=== PATIENT | female | born 1970 ===

== ENCOUNTER 2023-06-15 07:28 | Outpatient (CLI) | payer OTHER, SELFPAY ==
--- NOTE | 2023-06-15 07:48 | MM_ITS ---
WS: [id number] VIEWS: MLO and CC views both breasts. 3D digital tomosynthesis is also included in this exam. Comparison made with prior exam of 02/25/2016, 03/08/2016, 05/20/2021.. Findings: There was no sign of mass, architectural distortion or suspicious calcification in either breast. Sta ble appearing nodular densities in both breasts.There are scattered areas of fibroglandular density MM/[place] [id number] Impression: BI-RADS: 2-Benign finding. FOLLOW-UP: 1 Year Follow-up This mammogram was also analyzed by the Computer Aided Detection System R2 Imag e Clinical Pharmacist.
== END 2023-06-15 07:29 | disposition home or self-care (01) ==
PROVIDERS: PCP Family Medicine; Visit Provider Family Medicine
DX: Z12.31 Encounter for screening mammogram for malignant neoplasm of breast (principal)
CPT/HCPCS: 77063; 77067

== ENCOUNTER 2025-07-16 09:40 | Emergency (ER) | payer OTHER, SELFPAY ==
--- OUTSIDE RECORDS SUMMARY | 2025-07-08 18:45 | XMS_ITS | Encounter Summary ---
Author Organization [facility] Address [address] [place] [address] Care Team Providers Care Police Or Patrol Park Officer Name Role Phone Jennifer Yousif DO Primary Care Provider Reason for Visit * Reason Comments Insect bite/Sting Encounter Details Date Type Department Care Team (Late st Contact Info) Description 07/08/2025 6:45 PM CDT Video Visit [facility] [address] [place] [phone] Charlene Mar FNP [address] [facility] [address] [place] [address] Infected insect bite or sting (Primary Dx) Social History Tobacco Use Types Packs/Day Years Used Date Smoking Tobacco: Former Cigarettes Smokeless Tobacco: Never Alcohol Use Standard Drinks/Week Comments Yes 0 (1 standard drink = 0.6 oz pur e alcohol) Comments Unknown Sex and Gender Information Value Date Recorded Sex Assigned at Not on file Legal Sex Female 4:12 AM FAMILY PRESERVATION WORKER Gender Identity Not on file Sexual Orientation Not on file documented as of this encounter Patient Instructions * Attachments The following attachments cannot be sent through Care Everywhere. * Insect Stings and Bites ([place]) documented in this encounter Progress Notes * Charlene Mar FNP - 07/08/2025 7:06 PM CDT Images from the original note were not included. HISTORY OF PRESENT ILLNESS Marcie Cool, a 55 y.o. female presents with a Chief Complaint of Insect bite/Sting Subjective Insect bite/Sting Couple of hours ago bit felt like she was bitten by something to her right thigh. It perry and stings. Denies any change in voice, throat swelling, tongue swelling. REVIEW OF SYSTEMS Review of Systems Constitutional: Negative. HENT: Negative. Respiratory: Negative. Cardiovascular: Negative. Gastrointestinal: Negative. Skin: Positive for wound. All other systems reviewed and are negative. Objective PHYSICAL EXAM There were no vitals taken for this visit. Physical Exam Constitutional: Appearance: Normal appearance. HENT: Head: Normocephalic. Pulmonary: Effort: Pulmonary effort is normal. Skin: Comments: See picture Neurological: Mental Status: She is alert and oriented to person, place, and time. Psychiatric: Attention and Perception: Attention normal. Mood and Affect: Mood normal. Behavior: Behavior normal. Behavior is cooperative. Procedures Assessment ASSESSMENT and PLAN: ICD-10-CM ICD-9-CM 1. Infected insect bite or sting W57.XXXA 919.5 E906.4 Discussed with patient that she is having a localized reaction to a bug bite or sting. Advised to monitor and treat symptomatically. Try some Benadryl and ibuprofen and apply ice. She can reach out to [facility] primary care 365 at any time for questions or concerns. Patient verbalized understanding. Patient's identity confirmed yes Patient gave verbal consent to have these services billed to their insurance and expressed understanding that co-insurance and deductible may apply: yes Patient was located at home. {This encounter was completed via two-way synchronous audio and video communication. documented in this encounter Miscellaneous Notes * Patient Instructions - Charlene Mar FNP - 07/08/2025 7:14 PM CDT *Should you have any further questions about your video visit from today, contact the Care Now provider via [employer] at your convenience* documented in this encounter Plan of Treatment Upcoming Encounters Date Type Department Care Team (Late st Contact Info) Description 01/10/2026 12:00 PM FAMILY PRESERVATION WORKER Office Visit [facility] [address] [place] [address] Rolo Pathak FNP [address] [place] [phone] documented as of this encounter Visit Diagnoses Diagnosis Infected insect bite or sting- Primary Other, multiple, and unspecified sites, insect bite, nonvenomous, infected documented in this encounter Care Teams Police Or Patrol Park Officer Relationship Specialty Start Date End Date Jennifer Yousif DO [address] [place] [address] PCP - General Family Practice 03/02/16 documented as of this encounter
--- OUTSIDE RECORDS SUMMARY | 2025-07-10 09:40 | XMS_ITS | Encounter Summary ---
Author Organization [facility] Address [address] [place] [address] Care Team Providers Care Washing And Screening Plant Supervisor Name Role Phone Jennifer Yousif Primary Care Provider [phone] Reason for Visit * Reason Comments Insect bite/Sting Pt states insect bit e on right thigh Hypertension Hypertension Encounter Details Date Type Department Care Team (Late st Contact Info) Description 07/10/2025 9:40 AM CDT Office Visit [facility] [address] [place] [address] Rolo Pathak [facility] [address] [place] [address] Spider bite wound, accidental or unintentional, initial encounter (Primary Dx); Elevated blood pressure reading without diagnosis of hypertension Social History Tobacco Use Types Packs/Day Years Used Date Smoking Tobacco: Former Cigarettes Smokeless Tobacco: Never Alcohol Use Standard Drinks/Week Comments Yes 0 (1 standard drink = 0.6 oz pur e alcohol) Comments Unknown Sex and Gender Information Value Date Recorded Sex Assigned at Not on file Legal Sex Female 4:12 AM LOCOMOTIVE INSPECTOR Gender Identity Not on file Sexual Orientation Not on file documented as of this encounter Last Filed Vital Signs Vital Sign Reading Time Taken Comments Blood Pressure 156/98 07/10/2025 9:43 AM CDT Pulse 100 07/10/2025 9:42 AM CDT Temperature 36.8 C (98.2 F) 07/10/2025 9:42 AM CDT Respiratory Rate 18 07/10/2025 9:42 AM CDT Oxygen Saturation 97% 07/10/2025 9:42 AM CDT Inhaled Oxygen Concentration - - Weight 93.4 kg (205 lb 12.8 oz) 07/10/2025 9:42 AM CDT Height 172.7 cm (5' 8 ) 07/10/2025 9:42 AM CDT Body Mass Index 31.29 07/10/2025 9:42 AM CDT documented in this encounter Progress Notes * Rolo Pathak, WORKERS COMPENSATION CLAIMS ADJUSTER - 07/10/2025 9:42 AM CDT Images from the original note were not included. Chief Complaint Patient presents with Insect bite/Sting Pt states insect bite on right thigh Hypertension Hypertension Patient Active Problem List Diagnosis Code Tobacco use Z72.0 History of fracture of ankle Z87.81 H/O fracture of tibia Z87.81 Seasonal allergic rhinitis due to pollen J30.1 History of Present Illness The patient is a 55-year-old female who presents right thigh skin rash and pain. She reports severethigh pain from possible insect bite that occurred at her workplace on July 08, 2025. The area turned black and blue after scratching. She was advised to take Benadryl, ibuprofen, and apply ice during a [employer] Zoom call. However, her condition worsened, with the development of fever and increased leg pain. The pain is described as throbbing, burning, and stabbing. There is a red ring around the bite that has become more sore and raised. She has three distinct bite alba, with the third being less pronounced. She experienced a fever of 100.5??F last night, which subsided around 2-3 AM. Despite working yesterday, the intense pain caused her to cry. She was wearing pants at the time of the bite. She has no known allergies. Ice packs provide temporary relief, but rubbing exacerbates the pain. Her sleep has been affected due to the pain, resulting in a lack of sleep. 10 point review of systems is otherwise negative except as mentioned above. Depression Screen Positive: PHQ-2 score >= 3 or PHQ-9 score >= 9 PHQ-2 Total: 0 (07/10/2025 9:42 AM) DEPRESSION PLAN OF CARE Her depression screen was negative. (PHQ2 <3, PHQ9 <10, [place] <11) No past medical history on file. Current Outpatient Medications Medication Instructions cetirizine (ZYRTEC) 10 mg, Oral, DAILY doxycycline hyclate (VIBRAMYCIN) 100 mg, Oral, TWO TIMES DAILY traMADoL (ULTRAM) 50 mg tablet TAKE ONE TABLET BY MOUTH EVERY 8 HOURS NEEDED FOR PAIN. triamcinolone acetonide (NASACORT AQ) 55 mcg nasal spray 1 [place], DAILY Past Surgical History: Procedure Laterality Date HX BREAST SURGERY - OTHER infection of right breast that was surgically removed. HX FRACTURE TX Right 2006 plate and screws right ankle/leg. HX HYSTERECTOMY Bilateral 09/2004 COMPLETE HX TONSILLECTOMY Past social, family, and medical history reviewed. BP (!) 156/98 Pulse 100 Temp 98.2 ??F (36.8 ??C) Resp 18 Ht 5' 8 (1.727 m) Wt 93.4 kg (205 lb 12.8 oz) SpO2 97% BMI 31.29 kg/m?? Physical Exam Skin: The examination reveals an erythematous, raised area on the thigh with a red ring. There is no substantial abscess. Physical Exam Constitutional: General: She is not in acute distress. Appearance: Normal appearance. She is not ill-appearing. HENT: Right Ear: External ear normal. Left Ear: External ear normal. Nose: No congestion or rhinorrhea. Eyes: Conjunctiva/sclera: Conjunctivae normal. Pupils: Pupils are equal, round, and reactive to light. Pulmonary: Effort: Pulmonary effort is normal. No respiratory distress. Musculoskeletal: General: Normal range of motion. Skin: General: Skin is warm and dry. Findings: Rash (Left lateral mid thigh there is 5 cm x 9 cm irregular bordered skin rash with central purple puncta. Skin is very tender to touch with mild warmth. No significant abscess under the skin felt) present. Neurological: Mental Status: She is alert and oriented to person, place, and time. Psychiatric: Mood and Affect: Mood normal. Behavior: Behavior normal. ICD-10-CM ICD-9-CM 1. Spider bite wound, accidental or unintentional, initial encounter T63.301A 989.5 cefTRIAXone (ROCEPHIN) vial 1,000 mg E905.1 doxycycline hyclate (VIBRAMYCIN) 100 mg tablet 2. Elevated blood pressure reading without diagnosis of hypertension R03.0 796.2 Assessment & Plan Insect bite - Possible brown recluse spider bite, leading to staph infection and cellulitis - Immediate antibiotics needed - Antibiotic therapy, monitoring, and ER visit signs discussed (fever >102 F, rapid symptom progression) - IM 1 gram Rocephin injection today - Doxycycline 100 mg BID for 10 days, instructed to take with food and start probiotics - Tylenol, ibuprofen, and ice recommended - Will request short course to collaborative physician for hydrocodone for breakthrough pain Elevated blood pressure - Likely due to pain, discomfort, fever, and lack of sleep - Reevaluation next week to determine if related to current symptoms or underlying condition Follow-up - Next week VARUN GutierrezC The author of this note, patient (or authorized office services representative), and all other persons present consent to the audio recording of this visit for charting documentation purposes. This note was automatically generated, edited by a Quality Dairy Farm Worker, and finalized by KAMALA Manning. documented in this encounter Plan of Treatment Upcoming Encounters Date Type Department Care Team (Late st Contact Info) Description 01/10/2026 12:00 PM LOCOMOTIVE INSPECTOR Office Visit [facility] [address] [place] [phone] Rolo Pathak FNP [address] [place] [address] documented as of this encounter Visit Diagnoses Diagnosis Spider bite wound, accidental or unintentional, initial encounter- Primary Elevated blood pressure reading without diagnosis of hypertension documented in this encounter Administered Medications Inactive Administered Medications - up to 3 most recent administrations Medication Order MAR Action Action Date Dose Rate Site cefTRIAXone (ROCEPHIN) vial 1,000 mg 1,000 mg, IM, ONE TIME ONLY, 1 dose, On Tue07/10/25 at 1000, Routine, Antibiotic Indication: Wound / Cellulitis / AbscessIndications:Spider bite wound, accidental or unintentional, initial encounter Given 07/10/2025 10:04 AM CDT 1,000 mg Buttock, Right documented in this encounter Care Teams Washing And Screening Plant Supervisor Relationship Specialty Start Date End Date Jennifer Yousif DO [address] [place] [address] PCP - General Family Practice 03/02/16 documented as of this encounter
--- OUTSIDE RECORDS SUMMARY | 2025-07-15 08:00 | XMS_ITS | Encounter Summary ---
Author Organization [facility] Address [address] [place] [address] Care Team Providers Care Grease Buffer Name Role Phone Jennifer Yousif Primary Care Provider [phone] Reason for Referral * Eval and Treat (Urgent) - Pending Review Specialty Diagnoses / Procedures Referred By Rafael tian Referred To Contact Diagnoses Cutaneous abscess of right lower extremity Spider bite wound, accidental or unintentional, initial encounter Procedures AL OFFICE/OUTPATIENT ESTABLISHED MOD MDM 30 MIN AL OFFICE/OUTPATIENT NEW MODERATE MDM 45 MINUTES Rolo Pathak FNP [address] [place] [address] Phone: tel: fax: [facility] [place] [address] [place] [address] Phone: tel: fax: Referral ID Status Reason Start Date Expiration Date V isits Requested Visits Authorized [id number] Pending Review 07/15/2025 07/15/2026 1 1 Reason for Visit * Reason Comments Chronic Conditions Coordination Follow Up Spider bite Encounter Details Date Type Department Care Team (Late st Contact Info) Description 07/15/2025 8:00 AM CDT Office Visit [facility] [address] [place] [address] Rolo Pathak FNP [address] [place] [address] Cutaneous abscess of right lower extremity (Primary Dx); Spider bite wound, accidental or unintentional, initial encounter; Benign hypertension Social History Tobacco Use Types Packs/Day Years Used Date Smoking Tobacco: Former Cigarettes Passive Smoke Exposure: Past Smokeless Tobacco: Never Tobacco Cessation:Counseling Given: No Alcohol Use Standard Drinks/Week Comments Yes 0 (1 standard drink = 0.6 oz pur e alcohol) Comments No Sex and Gender Information Value Date Recorded Sex Assigned at Not on file Legal Sex Female 4:12 AM HIGH SCHOOL SPORTS COACH Gender Identity Not on file Sexual Orientation Not on file documented as of this encounter Last Filed Vital Signs Vital Sign Reading Time Taken Comments Blood Pressure 164/98 07/15/2025 8:08 AM CDT Pulse 110 07/15/2025 8:07 AM CDT Temperature 36.4 C (97.5 F) 07/15/2025 8:07 AM CDT Respiratory Rate 18 07/15/2025 8:07 AM CDT Oxygen Saturation 100% 07/15/2025 8:07 AM CDT Inhaled Oxygen Concentration - - Weight 92.5 kg (204 lb) 07/15/2025 8:07 AM CDT Height 172.7 cm (5' 8 ) 07/15/2025 8:07 AM CDT Body Mass Index 31.02 07/15/2025 8:07 AM CDT documented in this encounter Progress Notes * Rolo Ptahak, KAMALA - 07/15/2025 8:09 AM CDT Images from the original note were not included. Chief Complaint Patient presents with Chronic Conditions Coordination Follow Up Spider bite Patient Active Problem List Diagnosis Code History of fracture of ankle Z87.81 H/O fracture of tibia Z87.81 Seasonal allergic rhinitis due to pollen J30.1 Benign hypertension I10 History of Present Illness The patient is a 55-year-old female presenting for follow-up on a spider bite on right leg and elevated blood pressure. The spider bite's redness has decreased, but the area remains hard with blisters. She experiences shooting and throbbing thigh pain, which has lessened. Pain disrupts her sleep, allowing rest for 30 minutes to 1.5 hours, occasionally up to 3 hours. She has been unable to work due to pain and has been resting at home. No fever or chills, but a slight temperature increase to 99.5??F. Continues antibiotics twice daily and applies a bandage at work. She reports a knee injury with a popping sound while standing. She has been icing, wrapping, and elevating the knee. Considering a cortisone injection for her ankle. History of ankle fractures treated with plates and screws. She has not visited a doctor in about 5 years. Vital signs tend to elevate during visits. Acknowledges being overweight and is open to dietary changes. Maintains a healthy diet, avoiding processed foods. Takes turmeric, calcium, magnesium, zinc with vitamin D, and vitamin B supplements daily. 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 Hobbies: She engages in ron work. Diet: She avoids processed foods and cooks healthy meals. Sleep: Her sleep is disrupted due to pain, allowing her to sleep for 30 minutes to 1.5 hours, occasionally up to 3 hours. PAST SURGICAL HISTORY: The patient has a history of ankle fractures treated with plates and screws. 10 point review of systems is otherwise negative except as mentioned above. No past medical history on file. Current Outpatient Medications Medication Instructions cetirizine (ZYRTEC) 10 mg, Oral, DAILY doxycycline hyclate (VIBRAMYCIN) 100 mg, Oral, TWO TIMES DAILY HYDROcodone-acetaminophen (NORCO) 5-325 mg tablet 1 Tablet, Oral, EVERY 6 HOURS PRN lisinopriL (PRINIVIL) 20 mg, Oral, DAILY triamcinolone acetonide (NASACORT AQ) 55 mcg nasal spray 1 [place], DAILY Past Surgical History: Procedure Laterality Date HX BREAST SURGERY - OTHER infection of right breast that was surgically removed. HX FRACTURE TX Right 2006 plate and screws right ankle/leg. HX HYSTERECTOMY Bilateral 09/2004 COMPLETE HX TONSILLECTOMY Past social, family, and medical history reviewed. BP (!) 164/98 Pulse (!) 110 Temp 97.5 ??F (36.4 ??C) Resp 18 Ht 5' 8 (1.727 m) Wt 92.5 kg (204 lb) SpO2 100% BMI 31.02 kg/m?? Physical Exam Constitutional: General: She is not in acute distress. Appearance: Normal appearance. She is not ill-appearing. HENT: Right Ear: External ear normal. Left Ear: External ear normal. Eyes: Conjunctiva/sclera: Conjunctivae normal. Pupils: Pupils are equal, round, and reactive to light. Cardiovascular: Rate and Rhythm: Normal rate and regular rhythm. Heart sounds: No murmur heard. Pulmonary: Effort: Pulmonary effort is normal. No respiratory distress. Musculoskeletal: General: Normal range of motion. Skin: General: Skin is warm and dry. Findings: Wound (9 cm x 5 cm irregular bordered cellulitis with wound with central purple puncta with tenderness and firmness under the skin) present. Neurological: Mental Status: She is alert and oriented to person, place, and time. Psychiatric: Mood and Affect: Mood normal. Behavior: Behavior normal. ICD-10-CM ICD-9-CM 1. Cutaneous abscess of right lower extremity L02.415 682.6 AMB REFERRAL TO GENERAL SURGERY 2. Spider bite wound, accidental or unintentional, initial encounter T63.301A 989.5 AMB REFERRAL TOGENERAL SURGERY E905.1 3. Benign hypertension I10 401.1 CBC WITH DIFFERENTIAL COMPREHENSIVE METABOLIC PANEL TSH LIPID PANEL lisinopriL (PRINIVIL) 20 mg tablet Assessment & Plan Cellulitis and skin abscess - Wound on the right leg is firm, possibly developing into an abscess. - Referral to Dr. Pisano, general surgeon at [place], for evaluation and potential abscess drainage - Keep the area clean and dry, complete the cyclin antibiotics. - Continue monitor symptoms and report any worsening symptoms such as fever, redness significantly spread Hypertension - Blood pressure consistently elevated, today's reading in the 170s. - Order blood work - Prescribed lisinopril 20 mg once daily in the morning. - Monitor blood pressure at home several times a week and record readings. - Discussed about healthy lifestyle including dieting and staying active Follow-up: - Follow-up in 1 month. ANTON Gutierrez The author of this note, patient (or authorized charter representative), and all other persons present consent to the audio recording of this visit for charting documentation purposes. This note was automatically generated, edited by a Quality Sales Assistant Institutional Sales, and finalized by KAMALA Manning. documented in this encounter Plan of Treatment Upcoming Encounters Date Type Department Care Team (Late st Contact Info) Description 01/10/2026 12:00 PM HIGH SCHOOL SPORTS COACH Office Visit [facility] [address] [place] [phone] Ancelmo Pathakevangelinaflo Mayes, CASING TESTER [address] [place] [phone] Scheduled Orders Name Type Priority Associated Diagnoses Orde r Schedule CBC WITH DIFFERENTIAL Lab Routine Benign hypertension Expected: 07/15/2025, Expires: 07/15/2026 COMPREHENSIVE METABOLIC PANEL Lab Routine Benign hypertension Expected: 07/15/2025, Expires: 07/15/2026 TSH Lab Routine Benign hypertension Expected: 07/15/2025, Expires: 07/15/2026 LIPID PANEL Lab Routine Benign hypertension Expected: 07/15/2025, Expires: 07/15/2026 Scheduled Referrals Name Type Priority Associated Diagnoses Orde r Schedule AMB REFERRAL TO GENERAL SURGERY Outpatient Referral Routine Cutaneous abscess of right lower extremity Spider bite wound, accidental or unintentional, initial encounter Ordered: 07/15/2025 documented as of this encounter Visit Diagnoses Diagnosis Cutaneous abscess of right lower extremity- Primary Cellulitis and abscess of leg, except foot Spider bite wound, accidental or unintentional, initial encounter Benign hypertension Essential hypertension, benign documented in this encounter Care Teams Grease Buffer Relationship Specialty Start Date End Date Jennifer Yousif DO [address] [place] [phone] PCP - General Family Practice 03/02/16 documented as of this encounter
[2025-07-16 09:42] VITALS: BP 170/111; PULSE 90; TEMP 36.8; O2SAT 96; BMI 30.9
--- OUTSIDE RECORDS SUMMARY | 2025-07-16 09:45 | XMS_ITS | Encounter Summary ---
Author Organization [facility] Address [address] [place] [address] Care Team Providers Care Family Practice Nurse Practitioner Name Role Phone Jennifer Yousif DO Primary Care Provider [phone] Encounter Details Date Type Department Care Team (Late st Contact Info) Description 07/09/2025 External Device Data [place] ABSTRACTION Provider, Abstract NO ADDRESS ON FILE Social History Tobacco Use Types Packs/Day Years Used Date Smoking Tobacco: Former Cigarettes Smokeless Tobacco: Never Alcohol Use Standard Drinks/Week Comments Yes 0 (1 standard drink = 0.6 oz pur e alcohol) Comments Unknown Sex and Gender Information Value Date Recorded Sex Assigned at Not on file Legal Sex Female 4:12 AM DIRECTOR OF GLOBAL TALENT Gender Identity Not on file Sexual Orientation Not on file documented as of this encounter Plan of Treatment Upcoming Encounters Date Type Department Care Team (Late st Contact Info) Description 01/10/2026 12:00 PM DIRECTOR OF GLOBAL TALENT Office Visit [facility] [address] [place] [address] Rolo Pathak FNP [address] [place] [address] documented as of this encounter Visit Diagnoses Not on filedocumented in this encounter Care Teams Family Practice Nurse Practitioner Relationship Specialty Start Date End Date Jennifer Yousif DO [address] [place] [address] PCP - General Family Practice 03/02/16 documented as of this encounter
--- OUTSIDE RECORDS SUMMARY | 2025-07-16 09:45 | XMS_ITS | Encounter Summary ---
Author Organization [facility] Address [address] [place] [address] Care Team Providers Care Technical Analyst Name Role Phone Jennifer Yousif DO Primary Care Provider [phone] Reason for Visit * Reason Comments Clinical Consult Before Scheduling Encounter Details Date Type Department Care Team (Late st Contact Info) Description 07/10/2025 Nurse Triage [facility] [place] [address] [place] [address] Jennifer Yousif [address] [place] [address] Social History Tobacco Use Types Packs/Day Years Used Date Smoking Tobacco: Former Cigarettes Smokeless Tobacco: Never Alcohol Use Standard Drinks/Week Comments Yes 0 (1 standard drink = 0.6 oz pur e alcohol) Comments Unknown Sex and Gender Information Value Date Recorded Sex Assigned at Not on file Legal Sex Female 4:12 AM INSTRUCTOR KINDERGARTEN Gender Identity Not on file Sexual Orientation Not on file documented as of this encounter Miscellaneous Notes * Telephone Encounter - Deidra Vanegas LPN - 07/10/2025 8:13 AM CDT 07/10/2025 8:13 AM Adult patient complaining of insect bite/sting: Onset of new/worsening symptoms: 07/08/25 Location: right thigh Description: area has grown to larger since video visit. Patient states that the center is white with deep purple in color with a red raised ring around. The patient has the following symptoms or concerns: [x] Swelling [] Severe pain Pain Ratin /10 [] Rash/hives [] History of anaphylaxis from insect bite [] Used EpiPen [] Has tried medication or treatment at home Medications/Treatments tried: Benadryl IBU Other pertinent information: INFORMATIONAL MESSAGE ONLY. Appointment scheduled regarding this concern: 07/10/2025 Rolo Pathak FNP When and Why to Call Us Back: Increased swelling or skin discoloration Symptoms worsening or not improving Deidra BARCLAY * Telephone Encounter - Arthur Jensen - 07/10/2025 8:09 AM CDT Copied from [facility] #[id number]. Topic: Symptomatic Care >> Jul 10, 2025 8:05 AM Arthur Oneal wrote: Has this patient seen any provider (current or former) at the requested clinic in the past? Yes, Select the appropriate age range and symptom Patient has symptoms and is seeking care. Caller Name: Marcie Cool Callback Number: [phone] Call Notes: Spider bite on right thigh that is swollen and now she has a fever Age Range/Symptom: Adult 18+ - Insect Bites & Stings Does patient have any of the following other urgent symptoms? Chest pain, heaviness or discomfort -active (having it now) Is there an encounter open? No Transferred to [facility] En[place] answered call. documented in this encounter Plan of Treatment Upcoming Encounters Date Type Department Care Team (Late st Contact Info) Description 01/10/2026 12:00 PM INSTRUCTOR KINDERGARTEN Office Visit [facility] [address] [place] [address] Rolo Pathak FNP [address] [place] [phone] documented as of this encounter Visit Diagnoses Not on filedocumented in this encounter Care Teams Technical Analyst Relationship Specialty Start Date End Date Jennifer Yousif DO [address] [place] [address] PCP - General Family Practice 03/02/16 documented as of this encounter
--- OUTSIDE RECORDS SUMMARY | 2025-07-16 09:45 | XMS_ITS | Clinical Summary ---
Author Organization [facility] Address [address] [place] [facility] [place] [address] Care Team Providers Care Pharmacy Technician Per Diem Name Role Phone Jennifer Yousif Primary Care Provider Allergies No known active allergies Medications cetirizine (ZyrTEC) 10 mg tablet Take 10 mg by mouth daily. Active triamcinolone acetonide (NASACORT) 55 mcg nasal spray Administer 1 [place] in each nostril daily. Active traMADoL (ULTRAM) 50 mg tabletIndicatio ns:History of fracture of ankle,Acute right ankle pain,Right ankle swelling Take 1 Tablet (50 mg) by mouth every 8 hours as needed for Pain. 30 Tablet 2 1 Active Active Problems Problem Noted Date Diagnosed Date Seasonal allergic rhinitis due to pollen 017 History of fracture of ankle 02/25/2016 H/O fracture of tibia 02/25/2016 Tobacco use 02/20/2016 Immunizations Immunization Administration Dates Next Due INFLUENZA VACCINE QUADRIVALENT 6 MOS UP PF IM Family History Medical History Relation Name Comments Diabetes Father Alzheimer's Disease Maternal Grandmother Diabetes Paternal Grandmother Breast Cancer Neg Hx neg responses- see media tab Cancer Neg Hx Ovarian Cancer Neg Hx Relation Name Status Comments Daughter Alive Father Alive Maternal Grandmother Mother Alive Paternal Grandmother Sister Alive Social History Tobacco Use Types Packs/Day Years Used Date Smoking Tobacco: Former Cigarettes Smokeless Tobacco: Never Alcohol Use Standard Drinks/Week Comments Yes 0 (1 standard drink = 0.6 oz pur e alcohol) occasional social Comments No Sex and Gender Information Value Date Recorded Sex Assigned at Not on file Legal Sex Female 8:36 AM DIRECTOR AGENCY & STRATEGIC PARTNERSHIPS Gender Identity Not on file Sexual Orientation Not on file Last Filed Vital Signs Vital Sign Reading Time Taken Comments Blood Pressure 138/84 04/06/2021 8:08 AM CDT Pulse 80 04/06/2021 8:08 AM CDT Temperature 36.5 C (97.7 F) 04/06/2021 8:08 AM CDT Respiratory Rate 16 05/07/2020 8:37 AM CDT Oxygen Saturation 99% 04/06/2021 8:08 AM CDT Inhaled Oxygen Concentration - - Weight 93.9 kg (207 lb) 04/06/2021 8:08 AM CDT Height 172.7 cm (5' 8 ) 04/06/2021 8:08 AM CDT Body Mass Index 31.47 04/06/2021 8:08 AM CDT Plan of Treatment Health Maintenance Due Date Last Done Comments Pre-Diabetes and Diabetes Screening 1972 DTAP/TDAP/TD VACCINES (1 - Tdap) 1991 HEPATITIS B VACCINES (1 of 3 - 19+ 3-dose series) 1991 HPV/Cotest (21-29) 1993 CERVICAL CANCER SCREENING 2002 HPV/Cotest (30-65) 2002 PAP SMEAR 2002 COLORECTAL SCREENING 2017 Colorectal Cancer Screening 2017 FIT-DNA Q 3 years 2017 FIT/FOBT Q 1 year 2017 Flex Sig/CT Colonography Q 5 years 2017 ZOSTER VACCINE (1 of 2) 2022 BREAST CANCER SCREENING 06/15/2024 06/15/20 23, 05/20/2021, 03/08/2016, Additional history exists Preventative Visit- Commercial 11/28/2024 INFLUENZA VACCINE (#1) 2025 , 08/17/2018, 08/17/2018 Procedures Procedure Name Priority Date/Time Associated Diagnosis Comments MAMMO SCREEN BILAT W OR WO CAD Routine 05/20/2021 10:27 AM CDT Breast cancer screening by mammogram from Last 3 Months or Most Recently Relevant to Health Maintenance Results * MAMMO SCREEN BILAT W OR WO CAD (05/20/2021 10:27 AM CDT) Anatomical Region Laterality Modality Breast Bilateral Mammography Narrative 05/21/2021 6:36 AM CDT Bilateral Mammogram Reason for Exam: Screening Comparison: Compared to: 02/25/2016 MAMMO DIGITAL SCREEN BILAT Findings: Bilateral CC and MLO views were obtained. This examination was reviewed with the aid of a computer-aided detection system(CAD). Breast Composition: There are scattered areas of fibroglandular density. There are no suspicious masses, areas of architectural distortions, or microcalcifications to suggest malignancy. No significant new findings since the prior mammogram(s). Impression: Negative screening mammogram. Recommendation: Routine annual follow-up Overall Assessment: Birads Category 1: Negative us Zoila Cantu RN LABOR DELIVERY MAMMO ORDERABLES Final R esult from Last 3 Months or Most Recently Relevant to Health Maintenance Insurance [employer] [place] [id number] Care Teams Pharmacy Technician Per Diem Relationship Specialty Start Date End Date Jennifer Yousif DO [address] [place] [address] PCP - General Family Practice 03/02/16
--- OUTSIDE RECORDS SUMMARY | 2025-07-16 09:45 | XMS_ITS | Encounter Summary ---
Author Organization [facility] Address [address] [place] [address] Care Team Providers Care Safety Clothing And Equipment Developer Name Role Phone Jennifer Yousif DO Primary Care Provider Encounter Details Date Type Department Care Team (Late st Contact Info) Description 02/25/2016 Ancillary Orders [facility] [place] [address] [place] [address] Jennifer Yousif DO [address] [place] [address] History of fracture of ankle (Primary Dx); H/O fracture of tibia; Right ankle swelling Social History Tobacco Use Types Packs/Day Years Used Date Smoking Tobacco: Every Day Cigarettes Smokeless Tobacco: Never Alcohol Use Standard Drinks/Week Comments Yes 0 (1 standard drink = 0.6 oz pur e alcohol) occasional social Comments Unknown Sex and Gender Information Value Date Recorded Sex Assigned at Not on file Legal Sex Female 8:36 AM IMPORT/EXPORT ANALYST Gender Identity Not on file Sexual Orientation Not on file documented as of this encounter Plan of Treatment Not on file documented as of this encounter Results * XR ANKLE 3+ VW RIGHT (02/25/2016 2:06 PM CDT) Anatomical Region Laterality Modality Ankle / Foot Computed Radiogr aphy 02/25/2016 2:06 PM CDT Impressions 02/25/2016 3:41 PM CDT IMPRESSION: 1. Hypertrophic changes along the anterior aspect of the distal tibia. 2. No acute injury. 3. Prior healed fractures. [id number] Narrative 02/25/2016 3:41 PM CDT Exam: XR ANKLE 3+ VW RIGHT Date/Time of Exam: 02/25/2016 2:06 PM Reason For Exam: History of fracture of ankle,H/O fracture of tibia,Right ankle swelling. Findings: AP, lateral and oblique projections of the right ankle demonstrates prior surgical fixation of a medial malleolar fracture as well as fixation of a distal fibula fracture. Metallic hardware is present in these areas. Small bony density is present along the inferior aspect of the medial malleolus and this probably represents old injury. Acute fracture is not evident. Dome of the talus is normal. Ankle mortise is intact without evidence of joint effusion. Hypertrophic changes are present along the anterior aspect of the distal tibia. Calcaneus is normal. Jennifer Yousif DO DIAGNOSTIC IMAGING ORDERABL ES Final Result documented in this encounter Visit Diagnoses Diagnosis History of fracture of ankle Personal history of traumatic fracture H/O fracture of tibia Personal history of traumatic fracture Right ankle swelling Effusion of ankle and foot joint History of fracture of ankle- Primary Personal history of traumatic fracture H/O fracture of tibia Personal history of traumatic fracture Right ankle swelling Effusion of ankle and foot joint documented in this encounter Care Teams Safety Clothing And Equipment Developer Relationship Specialty Start Date End Date Jennifer Yousif DO [address] [place] [address] PCP - General Family Practice 03/02/16 documented as of this encounter
--- OUTSIDE RECORDS SUMMARY | 2025-07-16 09:45 | XMS_ITS | Encounter Summary ---
Author Organization [facility] Address [address] [place] [address] Care Team Providers Care Director Technical Name Role Phone Jennifer Yousif Primary Care Provider [phone] Encounter Details Date Type Department Care Team (Late st Contact Info) Description 10/08/2019 Lab Requisition [facility] [place] [address] [place] [address] Mauro Barajas PA NO ADDRESS ON FILE Social History Tobacco Use Types Packs/Day Years Used Date Smoking Tobacco: Former Cigarettes Smokeless Tobacco: Never Alcohol Use Standard Drinks/Week Comments Yes 0 (1 standard drink = 0.6 oz pur e alcohol) occasional social Comments No Sex and Gender Information Value Date Recorded Sex Assigned at Not on file Legal Sex Female 8:36 AM DENTAL BILLING SPECIALIST Gender Identity Not on file Sexual Orientation Not on file documented as of this encounter Plan of Treatment Not on file documented as of this encounter Procedures Procedure Name Priority Date/Time Associated Diagnosis Comments ANAEROBIC/AEROBIC CULTURE W GRAM STAIN Routine 10/08/2019 8:09 PM DENTAL BILLING SPECIALIST documented in this encounter Results * (ABNORMAL) ANAEROBIC/AEROBIC CULTURE W GRAM STAIN (10/08/2019 8:09 PM DENTAL BILLING SPECIALIST) CULTURE COAGULASE NEGATIVE STAPHYLOCOCCUS SPECIES, NOT STAPHYLOCOCCUS LUGDUNENSIS(A) FORREST MCG/ML 10/12/2019 7:45 AM DENTAL BILLING SPECIALIST [facility] GRAM STAIN 1+ (Rare or Occasional) Polymorphonuclear WBC 10/12/2019 7:45 AM DENTAL BILLING SPECIALIST [facility] GRAM STAIN 3+ (Moderate) Gram positive cocci 10/12/2019 7:45 AM DENTAL BILLING SPECIALIST [facility] Abscess 10/08/2019 8:09 PM DENTAL BILLING SPECIALIST 10/08/2019 8:58 PM DENTAL BILLING SPECIALIST Narrative Organism Antibiotic Method Susceptibility Staphylococcus species, coagulase negative CLINDAMYCIN FORREST MCG/ML 0.25 mcg/mL: Susceptible Staphylococcus species, coagulase negative ERYTHROMYCIN FORREST MCG/ML <=0.25 mcg/mL: Susceptible Staphylococcus species, coagulase negative OXACILLIN (Nafcillin) FORREST MCG/ML 1 mcg/mL: Susceptible Staphylococcus species, coagulase negative TRIMETHOPRIM/ SULFAMETHOXAZOLE FORREST MCG/ML <=10 mcg/mL: Susceptible Staphylococcus species, coagulase negative VANCOMYCIN FORREST MCG/ML <=0.5 mcg/mL: Susceptible Staphylococcus species, coagulase negative DOXYCYCLINE FORREST MCG/ML <=0.5 mcg/mL: Susceptible Mauro GALLARDO MICROBIOLOGY - GENERAL ORDERA BLES Final Result [facility] CLIA# [id number] [address] [place] [address] documented in this encounter Visit Diagnoses Not on filedocumented in this encounter Care Teams Director Technical Relationship Specialty Start Date End Date Jennifer Yousif DO [address] [place] [address] PCP - General Family Practice 03/02/16 documented as of this encounter
--- OUTSIDE RECORDS SUMMARY | 2025-07-16 09:45 | XMS_ITS | Encounter Summary ---
Author Organization [facility] Address [address] [place] [address] Care Team Providers Care Personal Lines Sales Rep Name Role Phone Jennifer Yousif DO Primary Care Provider Reason for Visit * Reason Onset Date Comments Medication Refill 07/10/2025 Encounter Details Date Type Department Care Team (Late st Contact Info) Description 07/10/2025 Refill [facility] [address] [place] [address] Jennifer Yousif [address] [place] [address] Spider bite wound, accidental or unintentional, initial encounter (Primary Dx) Social History Tobacco Use Types Packs/Day Years Used Date Smoking Tobacco: Former Cigarettes Smokeless Tobacco: Never Alcohol Use Standard Drinks/Week Comments Yes 0 (1 standard drink = 0.6 oz pur e alcohol) Comments Unknown Sex and Gender Information Value Date Recorded Sex Assigned at Not on file Legal Sex Female 4:12 AM VESSEL CREW MEMBER Gender Identity Not on file Sexual Orientation Not on file documented as of this encounter Miscellaneous Notes * Telephone Encounter - Denise Nelson - 07/10/2025 1:59 PM CDT Request for [place] per Gerber Nelson, 07/10/2025 1:59 PM documented in this encounter Plan of Treatment Upcoming Encounters Date Type Department Care Team (Late st Contact Info) Description 01/10/2026 12:00 PM VESSEL CREW MEMBER Office Visit [facility] [address] [place] [phone] Rolo Pathak, [facility] [address] [place] [address] documented as of this encounter Visit Diagnoses Diagnosis Spider bite wound, accidental or unintentional, initial encounter- Primary documented in this encounter Care Teams Personal Lines Sales Rep Relationship Specialty Start Date End Date Jennifer Yousif DO [address] [place] [address] PCP - General Family Practice 03/02/16 documented as of this encounter
--- OUTSIDE RECORDS SUMMARY | 2025-07-16 09:45 | XMS_ITS | Clinical Summary ---
Author Organization [facility] Address [address] [address] Care Team Providers Care Safety And Skill Based Pay Manager Name Role Phone Jennifer Yousif Primary Care Provider [phone] Allergies No known active allergies Medications triamcinolone acetonide (NASACORT AQ) 55 mcg nasal spray Administer 1 [place] in each nostril daily. 8 Active cetirizine (ZyrTEC) 10 mg tablet Take 10 mg by mouth daily. 7 Active doxycycline hyclate (VIBRAMYCIN) 100 mg tabletIndications :Spider bite wound, accidental or unintentional, initial encounter Take 1 Tablet (100 mg) by mouth 2 times daily for 10 days. 20 Tablet 5 07/20/20 25 Active HYDROcodone-aceta minophen (NORCO) 5-325 mg tabletIndications :Spider bite wound, accidental or unintentional, initial encounter Take 1 Tablet by mouth every 6 hours as needed for Pain, Moderate. Max Daily Amount: 4 Tablets 10 Tablet 5 Active lisinopriL (PRINIVIL) 20 mg tabletIndications :Benign hypertension Take 1 Tablet (20 mg) by mouth daily. 100 Tablet 3 5 Active Hospital, Clinic, or Other Facility Administered Medication Ordered Dose Route Frequency Start Date End Date Status cefTRIAXone (ROCEPHIN) vial 1,000 mgIndications:Spider bite wound, accidental or unintentional, initial encounter 1000 mg IM ONE TIME ONLY 07/10/2025 07/10/2025 Ende d Active Problems Problem Noted Date Diagnosed Date Benign hypertension 07/15/2025 Seasonal allergic rhinitis due to pollen 017 History of fracture of ankle 02/25/2016 H/O fracture of tibia 02/25/2016 Resolved Problems Problem Noted Date Diagnosed Date Resolved Date Tobacco use 02/20/2016 07/15/2025 Encounters Date Type Department Care Team Description 07/15/2025 8:00 AM CDT Office Visit [facility] [address] [place] [address] Rolo Pathak, SEQUINS SPOOLER Cutaneous abscess of right lower extremity (Primary Dx); Spider bite wound, accidental or unintentional, initial encounter; Benign hypertension 07/10/2025 9:40 AM CDT Office Visit [facility] [address] [place] [address] Rolo Pathak, SEQUINS SPOOLER Spider bite wound, accidental or unintentional, initial encounter (Primary Dx); Elevated blood pressure reading without diagnosis of hypertension 07/10/2025 Refill [facility] [address] [place] [address] Jennifer Yousif DO Spider bite wound, accidental or unintentional, initial encounter (Primary Dx) 07/10/2025 Nurse Triage [facility] [address] [place] [address] Jennifer Yousif DO 07/09/2025 External Device Data STL ABSTRACTION Provider, Abstract 07/09/2025 External Device Data STL ABSTRACTION Provider, Abstract 07/09/2025 External Device Data STL ABSTRACTION Provider, Abstract 07/08/2025 6:45 PM CDT Video Visit [facility] [address] [place] [phone] Charlene Mar, KAMALA Infected insect bite or sting (Primary Dx) 07/08/2025 Patient Self-Triage [facility] [address] [place] [address] from Last 3 Months Immunizations Immunization Administration Dates Next Due (PFIZER)(12 YR UP) COVID-19 VACCINE - EMERGENCY USE AUTHORIZATION, MRNA, [id number](PF) 30 MCG/0.3 ML IM SUSP 10/07/2021 INFLUENZA VACCINE QUADRIVALENT 6 MOS UP PF [...] on file Legal Sex Female 4:12 AM WELL DRILLER HELPER Gender Identity Not on file Sexual Orientation [...] Mass Index 31.02 07/15/2025 8:07 AM CDT Plan of Treatment Upcoming Encounters Date Type Department Care Team ([facility] st Contact Info) Description 01/10/2026 12:00 PM WELL DRILLER HELPER Office Visit [facility] [address] [place] [phone] Rolo Pathak FNP [address] [place] [phone] Health Maintenance Due Date Last Done Comments [...] BREAST CANCER SCREENING 06/15/2024 06/15/20 23, 05/20/2021, 05/20/2021, Additional history exists Preventative Visit- Commercial 11/28/2024 INFLUENZA VACCINE (#1) 2025 , 10/31/2020, 08/17/2018, Additional history exists COVID-19 Vaccine Completed 10/04/2024, 07/2023, 09/30/2022, Additional history exists Procedures Procedure Name Priority Date/Time Associated Diagnosis Comments MAMMO SCREEN BILAT W OR WO CAD Routine 06/15/2023 2:10 PM CDT from Last 3 Months or Most Recently Relevant to Health Maintenance Results * MAMMO SCREEN BILAT W OR WO CAD (06/15/2023 2:10 PM CDT) Anatomical Region Laterality Modality Breast Bilateral Mammography us Jennifer Yousif DO MAMMO ORDERABLES Edited Res ult - Final from Last 3 Months or Most Recently Relevant to Health Maintenance Insurance [employer] [id number] [place] [id number] Care Teams Safety And Skill Based Pay Manager Relationship Specialty Start Date End Date Jennifer Yousif DO [address] [place] [address] PCP - General Family Practice 03/02/16
--- OUTSIDE RECORDS SUMMARY | 2025-07-16 09:45 | XMS_ITS | Encounter Summary ---
Author Organization [facility] Address [address] [place] [address] Care Team Providers Care Soil Technologist Name Role Phone Jennifer Yousif DO Primary Care Provider [phone] Reason for Referral * Outpatient Services (Routine) - Closed Specialty Diagnoses / Procedures Referred By Contac t Referred To Contact Diagnoses Inconclusive mammography Procedures MAMMO BREAST US BILAT LTD Jennifer Yousif DO [address] [place] [address] Phone: tel: fax: [employer] [facility] CALL TO MAKE APPOINTMENT ONLY [address] [place] [address] Phone: tel: fax: Referral ID Status Reason Start Date Expiration Date Visits Re quested Visits Authorized [id number] Closed 02/27/2016 03/29/2017 1 1 * Auth/Cert (Routine) Specialty Diagnoses / Procedures Referred By Contac t Referred To Contact Diagnoses Inconclusive mammography Procedures MAMMO DIGITAL DIAG BILAT Jennifer Yousif DO [address] [place] [address] Phone: tel: fax: [employer] [facility] [facility] CALL TO MAKE APPOINTMENT ONLY [address] [place] [address] Phone: tel: fax: Referral ID Status Reason Start Date Expiration Date Visits Re quested Visits Authorized [id number] 02/27/2016 03/29/2017 1 1 Encounter Details Date Type Department Care Team (Latest Contact Info) Description 02/27/[address] 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 These all have benign features. However, since this is her first mammogram, with no previous for comparison, I would recommend bilateral mammogram in 6 months as close follow-up, to hopefully begin to show stability, before consideration of annual mammograms. Patient received a result/recommendation letter. [id number] Narrative 03/08/2016 3:54 PM CDT Bilateral Digital Diagnostic Mammogram and Bilateral Breast Ultrasound: Multiple additional images are presented in an attempt to visualize and evaluate suspected nodules, one medially on each side, one inferiorly on the right and suggested to be another subareolar on the right on recent initial baseline screening mammogram 02/24/2013. There are a few other areas that did not persist. The subareolar area essentially does not persist as abnormal. Nodule medially on each side and another inferiorly on the right persist, although they appear similar. Ultrasound was performed subareolar on the right inferiorly on the right and medially on each side. Some very minimal ductal dilatation is noted subareolar, with no dominant or suspicious mass. Inferiorly on the right at 6 o'clock position, there is a 13 mm septated cyst. At 8:30 o'clock medially on the left, there is an 11 mm cyst with some fibrocystic change medially on the right is suggested, with no dominant suspicious mass. No area of suspicion on either side is suggested on mammogram or ultrasound. Procedure Note Mak Al MD - 03/08/2016 Bilateral Digital Diagnostic Mammogram and Bilateral Breast Ultrasound: Multiple additional images are presented in an attempt to visualize and evaluate suspected nodules, one medially on each side, one inferiorly on the right and suggested to be another subareolar on the right on recent initial baseline screening mammogram 02/24/2013. There are a few other areas that did not persist. The subareolar area essentially does not persist as abnormal. Nodule medially on each side and another inferiorly on the right persist, although they appear similar. Ultrasound was performed subareolar on the right inferiorly on the right and medially on each side. Some very minimal ductal dilatation is noted subareolar, with no dominant or suspicious mass. Inferiorly on the right at 6 o'clock position, there is a 13 mm septated cyst. At 8:30 o'clock medially on the left, there is an 11 mm cyst with some fibrocystic change medially on the right is suggested, with no dominant suspicious mass. No area of suspicion on either side is suggested on mammogram or ultrasound. IMPRESSION IMPRESSION: I suspect that the areas of interest on recent screening mammogram and evaluated today with additional images and ultrasound are normal for this patient. These all have benign features. However, since this is her first mammogram, with no previous for comparison, I would recommend bilateral mammogram in 6 months as close follow-up, to hopefully begin to show stability, before consideration of annual mammograms. Patient received a result/recommendation letter. [id number] us Jennifer Yousif DO MAMMO ORDERABLES Final Resu lt * (ABNORMAL) MAMMO BREAST US BILAT [facility] (03/08/2016 3:20 PM CDT) Anatomical Region Laterality Modality Bilateral Ultrasound 03/08/2016 3:20 PM CDT Impressions 03/08/2016 3:54 PM CDT IMPRESSION: I suspect that the areas of interest on recent screening mammogram and evaluated today with additional images and ultrasound are normal for this patient. These all have benign features. However, since this is her first mammogram, with no previous for comparison, I would recommend bilateral mammogram in 6 months as close follow-up, to hopefully begin to show stability, before consideration of annual mammograms. Patient received a result/recommendation letter. [id number] Narrative 03/08/2016 3:54 PM CDT Bilateral Digital Diagnostic Mammogram and Bilateral Breast Ultrasound: Multiple additional images are presented in an attempt to visualize and evaluate suspected nodules, one medially on each side, one inferiorly on the right and suggested to be another subareolar on the right on recent initial baseline screening mammogram 02/24/2013. There are a few other areas that did not persist. The subareolar area essentially does not persist as abnormal. Nodule medially on each side and another inferiorly on the right persist, although they appear similar. Ultrasound was performed subareolar on the right inferiorly on the right and medially on each side. Some very minimal ductal dilatation is noted subareolar, with no dominant or suspicious mass. Inferiorly on the right at 6 o'clock position, there is a 13 mm septated cyst. At 8:30 o'clock medially on the left, there is an 11 mm cyst with some fibrocystic change medially on the right is suggested, with no dominant suspicious mass. No area of suspicion on either side is suggested on mammogram or ultrasound. Procedure Note Mak Al MD - 03/08/2016 Bilateral Digital Diagnostic Mammogram and Bilateral Breast Ultrasound: Multiple additional images are presented in an attempt to visualize and evaluate suspected nodules, one medially on each side, one inferiorly on the right and suggested to be another subareolar on the right on recent initial baseline screening mammogram 02/24/2013. There are a few other areas that did not persist. The subareolar area essentially does not persist as abnormal. Nodule medially on each side and another inferiorly on the right persist, although they appear similar. Ultrasound was performed subareolar on the right inferiorly on the right and medially on each side. Some very minimal ductal dilatation is noted subareolar, with no dominant or suspicious mass. Inferiorly on the right at 6 o'clock position, there is a 13 mm septated cyst. At 8:30 o'clock medially on the left, there is an 11 mm cyst with some fibrocystic change medially on the right is suggested, with no dominant suspicious mass. No area of suspicion on either side is suggested on mammogram or ultrasound. IMPRESSION IMPRESSION: I suspect that the areas of interest on recent screening mammogram and evaluated today with additional images and ultrasound are normal for this patient. These all have benign features. However, since this is her first mammogram, with no previous for comparison, I would recommend bilateral mammogram in 6 months as close follow-up, to hopefully begin to show stability, before consideration of annual mammograms. Patient received a result/recommendation letter. [id number] us Jennifer Yousif DO MAMMO ORDERABLES Final Resu lt documented in this encounter Visit Diagnoses Diagnosis Inconclusive mammography- Primary Inconclusive mammogram Inconclusive mammography Inconclusive mammogram Inconclusive mammography Inconclusive mammogram documented in this encounter Care Teams Soil Technologist Relationship Specialty Start Date End Date Jennifer Yousif DO [address] [place] [address] PCP - General Family Practice 03/02/16 documented as of this encounter
--- OUTSIDE RECORDS SUMMARY | 2025-07-16 09:45 | XMS_ITS | Encounter Summary ---
Author Organization [facility] Address 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 Gender Identity Not on file Sexual Orientation Not on file documented as of this encounter Plan of Treatment Upcoming Encounters Date Type Department Care Team (Late st Contact Info) Description 01/10/2026 12:00 PM VALVE ASSEMBLER Office Visit [facility] [address] [place] [address] Rolo Pathak FNP [address] [place] [address] documented as of this encounter Visit Diagnoses Not on filedocumented in this encounter Care Teams Candy Catcher Relationship Specialty Start Date End Date Jennifer Yousif DO [address] [place] [address] PCP - General Family Practice 03/02/16 documented as of this encounter
--- OUTSIDE RECORDS SUMMARY | 2025-07-16 09:45 | XMS_ITS | Encounter Summary ---
Author Organization [facility] Address 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 Gender Identity Not on file Sexual Orientation Not on file documented as of this encounter Plan of Treatment Upcoming Encounters Date Type Department Care Team (Late st Contact Info) Description 01/10/2026 12:00 PM PRESCHOOL PROGRAM DIRECTOR Office Visit [facility] [address] [place] [address] Rolo Pathak FNP [address] [place] [address] documented as of this encounter Visit Diagnoses Not on filedocumented in this encounter Care Teams Electrical Discharge Machine Operator Relationship Specialty Start Date End Date Jennifer Yousif DO [address] [place] [address] PCP - General Family Practice 03/02/16 documented as of this encounter
--- NOTE | 2025-07-16 09:54 | W.ED.SKABFB ---
HPI - Skin/Abscess/Foreign Bdy General: Chief complaint: Skin/Abscess/Foreign Body Stated complaint: urgent care sent, possible spider bite R thigh Time Seen by Provider: 07/16/25 09:40 Source: patient Mode of arrival: ambulatory Limitations: no limitations History of Present Illness: Patient is a 55-year-old female presents to ED today after she was referred here from urgent care for further evaluation of a probable spider bite. Patient states that she felt something bite/sting her to her right lateral thigh 8 days ago. She states the day after she began developing low-grade fevers, chills, body aches. She states have since subsided but she feels like the skin lesion continues to worsen and change in color. She was seen at some point and placed on doxycycline. She was referred to general surgery and does have an appointment with Dr. Kumari at 8 AM this Tuesday. She was also prescribed hydrocodone that she has been taking sparingly for significant discomfort. Patient states she was seen in urgent care today and referred here stating she might need imaging performed. complaint: insect bite/sting Onset (ago): day(s) Tetanus up to date: yes Location: RLE Severity: moderate Quality: burning Pain Consistency: constant Relieving factors: none Exacerbating factors: none Context: other (probable insect bite/sting) Associated symptoms: Reports no associated symptoms; Deny vomiting Treatments prior to arrival: antibiotic Related Data Allergies Allergy/AdvReac Type Severity Reaction Status Date / Time No Known Allergies Allergy Verified 07/16/25 09:48 Review of Systems Const: Reports: other (low grade subj fever, chills, body aches day after but have since subsided) Card: Denies: chest pain Resp: Denies: dyspnea GI: Denies: abdominal pain, vomiting or diarrhea Musc: Reports: extremity pain; Denies: neck pain, back pain, extremity swelling, joint pain, joint swelling or joint redness Skin/Breast: Reports: other (probable spider bite R lateral thigh) Neuro: Denies: headache(s), numbness in extremities, weakness in extremities, sensory changes or difficulty walking Physical Exam Const: COMMON NORMALS: no acute distress, average body habitus, no limitations, healthy appearing, alert and well nourished Resp: COMMON NORMALS: normal respiratory effort and clear to auscultation bilaterally AUSCULTATION: clear to auscultation bilaterally Cardio: COMMON NORMALS: regular rate and regular rhythm RATE: regular rate RHYTHM: regular rhythm Extremity: COMMON NORMALS: full ROM and capillary refill normal GENERAL: Yes normal exam except as noted RIGHT LOWER EXTREMITY: Yes upper leg (probable spider bite R lateral thigh) Right upper leg: Yes neurovascular exam (normal) OTHER: pt has a roughly 7cm skin lesion to lateral aspect of R thigh that is indurated with central dusky appearance and vesicular formations consistent with probable spider bite; no fluctuance noted; no discharge; no surrounding cellulitis or streaking Neuro: COMMON NORMALS: moves all extremities, no focal motor deficits, no sensory deficits noted and gait normal SENSORIUM/ORIENTATION: Yes alert Skin: NARRATIVE SKIN EXAM: see above Course Vital Signs: Vital signs: Vital Signs Temperature 98.2 F 07/16/25 09:42 Pulse Rate 90 07/16/25 09:42 Blood Pressure 170/111 07/16/25 09:42 Pulse Oximetry 96 07/16/25 09:42 Oxygen Delivery Me thod Room Air 07/16/25 09:42 MDM - Skin/Abscess/Foreign Bdy Medicial Decision Making Patient's skin lesion is consistent with a probable brown recluse bite. There is no area of fluctuance at this time. Her vital signs are stable. White count is normal. This may require nonemergent debridement. She does already have an appointment to see Dr. Kumari early Tuesday morning which I feel is appropriate. I do not feel any form of imaging at this time would ultimately private branch exchange service advisor. Medical Records I reviewed the patient's medical records. Lab Data I reviewed the patient's lab results. 07/16/25 10:47 07/16/25 10:47 Laboratory Results WBC 7.54 10^3/uL (3.29-11.43) 07/16/25 10:47 RBC 4.97 10^6/uL (3.85-5.65) 07/16/25 10:47 Hgb 14.10 g/dL (11.27-16.99) 07/16/25 10:47 Hct 44.1 % (36-47) 07/16/25 10:47 MCV 88.7 fl (85-98) 07/16/25 10:47 MCH 28.4 pg (27-33) 07/16/25 10:47 MCHC 32.0 g/dL (30-55) 07/16/25 10:47 RDW 12.2 % (12.1-15.1) 07/16/25 10:47 Plt Count 240 10^3/cmm (157-399) 07/16/25 10:47 MPV 12.0 fL (7.4-10.4) H 07/16/25 10:47 Neut % (Auto) 54.8 % 07/16/25 10:47 Lymph % (Auto) 34.4 % 07/16/25 10:47 [place] % (Auto) 6.1 % 07/16/25 10:47 Eos % (Auto) 3.1 % 07/16/25 10:47 Baso % (Auto) 1.1 % 07/16/25 10:47 Neut # (Auto) 4.14 10^3/uL (1.8-7.7) 07/16/25 10:47 Lymph # (Auto) 2.6 10^3/uL (0.8-4.8) 07/16/25 10:47 [place] # (Auto) 0.5 10^3/uL (0.2-0.9) 07/16/25 10:47 Eos # (Auto) 0.2 10^3/uL (0.0-0.8) 07/16/25 10:47 Baso # (Auto) 0.1 10^3/uL (0.0-0.1) 07/16/25 10:47 Nucleated RBC % (auto) 0 % 07/16/25 10:47 Nucleated RBCs # 0.0 /100WBC 07/16/25 10:47 No radiology studies performed this visit Discharge Plan Discharge Patient Disposition: Home Clinical Impression: Brown recluse spider bite Qualifiers: Encounter type: initial encounter Injury intent: accidental or unintentional Qualified Code(s): T63.331A - Toxic effect of venom of brown recluse spider, accidental (unintentional), initial encounter Condition: Stable Discharge Orders: Discharge ED (Routine); Ordered 07/16/25 Ordered By: Jazmin Crane Referrals: Jennifer Yousif DO [Primary Care Provider, [facility]] Patient Instructions: Brown Recluse Spider Bite, Brown Recluse Spider Bite (ED), Patient Portal & Mi Instructions Activity Restrictions/Additional Instructions: Blood work here showed a normal white count. Plan at this time will be for you to see general surgery as scheduled on Tuesday for further evaluation and management. Print Language: Bolivian Coding Level of Care Code ED Paint Technician for Alistair Velasquez
[2025-07-16 10:59] LABS: Hematocrit 44.1 % (36-47); Hemoglobin 14.10 g/dL (11.27-16.99); Mean Corpuscular HGB Conc 32.0 g/dL (30-55); Mean Corpuscular Hemoglobin 28.4 pg (27-33); Mean Corpuscular Volume 88.7 fl (85-98); Nucleated Red Blood Cells % 0 %; Platelet Count 240 10^3/cmm (157-399); Red Blood Count 4.97 10^6/uL (3.85-5.65); White Blood Count 7.54 10^3/uL (3.29-11.43)
[2025-07-16 11:17] LABS: Alanine Aminotransferase 38 U/L (0-33); Albumin Level 4.3 g/dL (3.5-5.2); Alkaline Phosphatase 77 U/L (35-105); Anion Gap 17.2 (5-19); Aspartate Amino Transferase 35 U/L (0-32); Blood Urea Nitrogen 12 mg/dL (6-20); Calcium 10.4 mg/dL (8.5-10.5); Carbon Dioxide 22 mmol/L (22-29); Chloride 101 mmol/L (98-107); Creatinine Clr Calc Pharmacy 154.4150; Globulin 3.3 g/dL (1.3-4.6); Glucose 262 mg/dL (65-115); Osmolality Calculated 291 mOsm/kg (285-295); Potassium 4.2 mmol/L (3.5-5.1); Sodium 136 mmol/L (136-145); Total Protein 7.6 g/dL (6.6-8.7)
== END 2025-07-16 11:14 | disposition home or self-care (01) ==
PROVIDERS: Emergency Provider Physician Assistant; PCP Family Medicine
DX: T63.331A Toxic effect of venom of brown recluse spider, accidental (unintentional), initial encounter (principal); X58.XXXA Exposure to other specified factors, initial encounter
CPT/HCPCS: 36415; 80053; 85025; 99283